=== PATIENT | male | born 1950 | race Caucasian/White ===

== ENCOUNTER 2024-08-23 06:22 | Day surgery (SDC) | payer OTHER, SELFPAY | END 2024-08-23 09:46 | disposition home or self-care (01) | LOC: GI 06:22 | PROVIDERS: ATTENDING PHYSICIAN Internal Medicine Gastroenterology | DX: R13.10 Dysphagia, unspecified (principal); Q39.9 Congenital malformation of esophagus, unspecified; K29.70 Gastritis, unspecified, without bleeding; K31.7 Polyp of stomach and duodenum | CPT/HCPCS: 43239; 88305; 88342 ==

== ENCOUNTER → 2024-08-25 12:11 | Outpatient (REF) | payer OTHER, SELFPAY | LOC: RCS 12:11 | PROVIDERS: ATTENDING PHYSICIAN Internal Medicine Cardiovascular Disease; FAMILY PHYSICIAN Internal Medicine | DX: I48.0 Paroxysmal atrial fibrillation (principal); R06.09 Other forms of dyspnea | CPT/HCPCS: 93306 ==

== ENCOUNTER → 2024-08-29 08:01 | Outpatient (REF) | payer OTHER, SELFPAY | LOC: PET 08:01 | PROVIDERS: ATTENDING PHYSICIAN Internal Medicine Cardiovascular Disease | DX: I48.0 Paroxysmal atrial fibrillation (principal); R06.09 Other forms of dyspnea | CPT/HCPCS: 78431; A9555; J2785 ==

== ENCOUNTER → 2024-08-31 08:51 | Outpatient (REF) | payer OTHER, SELFPAY | LOC: RAD 08:51 | PROVIDERS: ATTENDING PHYSICIAN Internal Medicine Gastroenterology; FAMILY PHYSICIAN Hospitalist | DX: R10.11 Right upper quadrant pain (principal) | CPT/HCPCS: 76700 ==

== ENCOUNTER → 2024-10-17 13:00 | Outpatient (REF) | payer OTHER, SELFPAY | LOC: RAD 13:00 | PROVIDERS: ATTENDING PHYSICIAN Student in an Organized Health Care Education/Training Program; FAMILY PHYSICIAN Internal Medicine | DX: I48.0 Paroxysmal atrial fibrillation (principal) | CPT/HCPCS: 75572; Q9967 ==

== ENCOUNTER 2024-12-05 05:58 | Inpatient (IN) | payer OTHER, SELFPAY ==
[2024-11-14 13:03] VITALS: BMI 31.4
[2024-11-14 13:13] LABS: Hematocrit 37.0 % (39.0-52.0); Hemoglobin 12.7 g/dL (13.0-18.0); Mean Corp Hgb Conc. 34.3 g/dL (33.0-37.0); Mean Corpuscular Volume 91.8 fL (80.0-94.0); Nucleated Red Blood Cells % 0 % (-); Platelet Count 220 10^3/uL (130-400); Red Cell Dist. Width 13.2 % (11.5-14.5)
[2024-11-14 13:27] LABS: INR 1.28; PT 16.3 Sec (11.4-14.6)
[2024-11-14 14:04] LABS: ALT (SGPT) 19 U/L (0-50); AST (SGOT) 24 U/L (17-59); Albumin 4.2 g/dl (3.5-5.0); Alkaline Phosphatase 38 U/L (38-126); Blood Urea Nitrogen 23 mg/dl (9-20); Calcium 9.6 mg/dl (8.4-10.2); Carbon Dioxide 23 mmol/L (22-30); Chloride 113 mmol/L (98-107); Estimated Creatinine Clearance 65 ml/min; Glucose 107 mg/dl (70-99); Potassium 4.1 mmol/L (3.5-5.1); Sodium 141 mmol/L (135-145); Total Protein 6.5 g/dl (6.3-8.2); eGFR > 60.00
[2024-12-05] VITALS (17 sets, daily range): BP systolic 89–116; BP diastolic 46–66
--- NOTE | 2024-12-05 09:06 | ITS.CL.PN ---
Tong Hooker - Procedure Note
Procedure
Procedure Note:
WATCHMAN LEFT ATRIAL APPENDAGE OCCLUSION REPORT
Date of Procedure: 12/05/2024
Referring: Dr. Chapis Ruiz MD
Indication: atrial fibrillation with high bleeding risk and high stroke risk
Operators: Ankit Espinal MD, PhD (interventional cardiology); Dr. Demond Gunn MD (electrophysiology); Dr. Miguel Barr MD (cardiac imaging)
Anesthesia: general anesthesia provided by the anesthesia staff
PROCEDURE: left atrial appendage occlusion with a 27 mm Watchman FLX
ACCESS: 14F right common femoral vein (closure: figure of eight stitch) - Ultrasound was utilized for vascular access. The vessel was visualized under ultrasound and noted to be patent. An image of the vessel was stored permanently in the patient's
medical record. Under direct ultrasound guidance, vascular access was obtained using a modified Seldinger technique and a 8 [place] sheath was placed.
HEMODYNAMIC DATA
LA 11 mmHg
PROCEDURE NARRATIVE:
The patient was intubated and sedated by anesthesiology and then prepped and draped in standard sterile fashion. A CAMILA probe was placed by cardiology and imaging performed demonstrating no left atrial appendage thrombus and no pericardial effusion.
Under ultrasound guidance, the right femoral vein was accessed by Dr. Gunn with an 8F sheath placed. Heparin was administered to achieve ACT>300.
An ICE catheter was placed via the 9F sheath and advanced to the right atrium. The 8F sheath was exchanged over a Intex[employer] RF wire for the Watchman double curve sheath which was advanced to the SVC. The Watchman sheath was then pulled back under
fluoroscopic and echo guidance until an appropriate inferior and posterior position on the septum was achieved. During brief RF application, the wire was advanced through the interatrial septum into the left atrium. The wire was placed in the left
upper pulmonary vein as confirmed by fluoroscopy and CAMILA. The dilator and sheath easily tracked across the septum allowing placement of the sheath in the left atrium. Left atrial pressure was measured at 11 mmHg.
A 5F pigtail catheter was advanced through the sheath and placed in the left atrial appendage, and an appendage gram was performed demonstrating anatomy suitable for a 24 mm Watchman FLX device. The device was prepped on the back table, the pigtail
catheter removed, and the device delivered via the sheath to the left atrial appendage by Dr. Kwame Espinal. The device was deployed slowly under continuous fluoroscopic and CAMILA visualization. After deployment, CAMILA imaging was performed to assess
PASS criteria. The device demonstrated excellent positioning, anchor stability on tug test, but was under sized with compression only 0-10%. The device was recaptured and removed, and a 27 mm device instead deployed in the above manner this time
with excellent positioning, anchor stability on tug test, and appropriate sizing with 10-15% compression, and appropriate seal with no leak at 0, 45, 90, or 135 degrees. Given PASS criteria were met, the device was then released.
The delivery system retracted back into the sheath and removed from the body. The sheath was retracted into the right atrium with CAMILA demonstrating no significant R-L shunt or pericardial effusion. The ICE catheter was
CONCLUSIONS
1. transseptal puncture with CAMILA guidance
2. successful deployment of a 27 mm Watchman FLX device under fluoroscopic and CAMILA guidance
RECOMMENDATIONS:
1. anticoagulation with dabigatran 150 mg BID for 3 months
2. repeat CAMILA in 3 months
Copy to: Dr. Chapis Ruiz MD (computer systems security administrator); Dr. Laina Shipman MD (PCP)
Signed: Ankit Espinal MD, PhD
[2024-12-05 09:08] LABS: ACT-LR - POC 347 Seconds (116-155)
--- NOTE | 2024-12-05 09:37 | WATCHMAN.MD ---
Watchman Implant
-
Watchman ROCIO occlusion device implantation:
Mr. Murillo is a 74 yrs old woman with recurrent falls, subdural hematoma, s/p colon resection and advised to stop anticoagulation therapy is here for Watchman implantation.
Date of Procedure:
12/05/24
Indications:
Recurrent falls with anticoagulation therapy for stroke prevention
Pre-Operative Diagnosis:
Atrial fibrillation with recurrent falls
Post-Operative Diagnosis:
Atrial fibrillation with recurrent falls
Procedure Performed:
Left atrial appendage occlusion with Watchman implantation (27 mm Watchman FLX Pro left atrial appendage closure device)
Performing Physicians:
CAMILA: Lb Brar MD.
Transseptal digging machine operator: Demond Gunn MD.
Implanter: Ankit Espinal MD
Anesthesia:
See anesthesia records
Detailed Description of the Procedure:
Written informed consent was obtained from the patient after a full explanation of the risks and benefits of the procedure including the risks of sedation and anesthesia.
The patient was brought to the electrophysiology laboratory in stable condition in fasting state. Continuous electrocardiographic and hemodynamic monitoring was initiated.
The initial rhythm was sinus.
The procedure site was meticulously prepared with surgical scrub and allowed to dry with no pooling. Sterile draping was applied to cover the procedure site. The image intensifier was draped with sterile bag and positioned over the patient. After
infusion of local anesthetic, vascular access was obtained under ultrasound guidance and sheaths were placed over guide wire as detailed below.
Sheath and Catheter Placement:
In the right femoral vein, an 8-Czech sheath was placed for Watchman placement procedure.
Sheaths:
��������������� Watchman delivery sheath upgraded from 8Fr sheath.
Catheters:
��������������� Watchman catheter
Trans-septal Puncture:
Heparin was initiated and infused to maintain appropriate ACT.
A VersaCross RF pigtail guidewire was advanced through the 8-Czech sheath in the right femoral vein into the superior vena cava under fluoroscopic, CAMILA guidance. The 8Fr was upgraded the Watchman sheath and was advanced into the superior vena cava
over the guide wire. A transseptal VersaCross RF pigtail via Faradrive connect system was utilized to perform the trans-septal puncture. The apparatus was withdrawn until it was in contact with the fossa ovalis. The position was adjusted based on
fluoroscopy and ultrasound images from CAMILA. Under fluoroscopic, hemodynamic and CAMILA ultrasound guidance, left atrium was cannulated by applying the radiofrequency energy. The right atrial and left atrial pressure was monitored. A guide wire was
placed and was advanced into the left superior pulmonary vein. Both the sheath and the dilator was advanced into the left atrium. The dilator was withdrawn. Blood was aspirated from the sheath and arterial blood confirmed. The sheath was flushed.
Saline injection noted into the left atrium on CAMILA. The LA pressure was recorded. The saline injection was noted in the LA on the CAMILA. A curved pig tail was advanced over the guide wire into the left atrium and the wire was removed.
Left atrial appendage atriography:
The pigtail was advanced into the ROCIO and was confirmed on fluoroscopy and CAMILA. The contrast was injected and the ROCIO shape was recorded in STEWART /Caudal view (10/10 degrees). The size of the ROCIO was again checked and confirmed reviewing the CAMILA and
the fluoroscopy along with previously obtained CT scan images.
Watchman Deployment:
The Watchman delivery sheath was advanced into the ROCIO over the pigtail till the right marker was at the location of the orifice line marked on the screen. The pigtail was removed and the Watchman delivery system was advanced through the sheath into
the ROCIO till it was aligned with the outer sheath marker inside the ROCIO. The watchman sheath was clicked with the outer sheath. Once acceptable location achieved, the outer sheath was pulled back keeping the device steady at the ROCIO location till a
ball of the device was formed under fluoroscopic guidance. The whole system was advanced further into the ROCIO till adequate depth is achieved into the ROCIO.� The ROCIO occluder was deployed and expanded adequately anchoring to the ROCIO. The device was
kept anchored with stable pressure to that location for 10 seconds.
The compression on the device was inadequate and decision was made to switch 24 mm device to 27 mm device.
The new device was prepped and introduced and deployed as noted above.
The CAMILA image confirmed adequate expansion. The tug test was done that showed the device is anchored well and is not able to come out. The compression was 15% and 18% on the three sides. There was no significant leak noted on the Doppler via CAMILA.
The device was deployed by unscrewing the Watchman device and releasing from the connecting wire. The wire was pulled back into the sheath and the sheath was pulled out of the LA.
Implanted device:
WATCHMAN FLX Pro � 27mm
Procedure End
CAMILA study was done again that showed no epicardial accumulation that was unchanged from earlier. A repeated images showed no change in the pericardial space. No complications noted.
Following the completion of the deployment, catheters were removed. Protamine 30 mg was given at the end of the procedure and ACT was checked repeatedly. The sheath was removed and hemostasis achieved with Fig of 8 suture and manual compression
after acceptable ACT is achieved.
Left atrial Pressure:
Mean LA pressure was 11mmHg
Estimated Blood loss:
10 cc
Specimens Removed:
None.
Implants / Devices:
None
Urine output:
None
Packs / Drains/ Tubes:
None
Instrument / Sponge Count Correct:
Yes
Complications of the Procedure:
None
Condition of Patient at Time of Transfer:
Hemodynamically stable with no neurological or vascular compromise.
Summary:
Successful implantation of the left atrial occlusion device (WATCHMAN FLX Pro� 27mm)
Post procedure Plan for anticoagulation:
Continue Dabigatran 150 mg BID for 3 months.
CAMILA in three months
--- NOTE | 2024-12-05 16:37 | W.DS.TRANS ---
DC Summary - Communications Consultant
-
Discharge Instructions:
Discharge Diagnosis/Procedures AFib, s/p watchman device implant
Diet Low Cholesterol
Driving Restrictions No driving for 24 hours
Others Tests Follow Up CAMILA has been scheduled for you at [facility] on 03/07/[address] Acosta. You will receive instructions in the
mail and a call the day prior with arrival time.
Instructions:
Stand-Alone Forms: DC Instructions- Cath/EP Lab
Changes to Home Medications: No
Discharge Medications:
DC Medications w/original date entered in [employer]([facility])
fenofibrate nanocrystallized 145 mg tablet 145 mg PO DAILY 08/16/11
doxazosin 4 mg tablet 4 mg PO DAILY 12/26/14
allopurinol 100 mg tablet 100 mg PO DAILY 11/27/16
pantoprazole 40 mg tablet,delayed release 40 mg PO DAILY 11/27/16
dabigatran etexilate 150 mg capsule (Pradaxa) 150 mg PO BID ##60 12/12/16
escitalopram oxalate 10 mg tablet (Lexapro) 10 mg PO DAILY 11/09/24
levetiracetam 500 mg tablet (Keppra) 2,000 mg PO QPM 11/09/24
losartan 100 mg tablet 100 mg PO DAILY 11/09/24
metoprolol succinate 100 mg tablet,extended release 24 hr 100 mg PO DAILY 11/09/24
rosuvastatin 20 mg tablet (Crestor) 20 mg PO QPM 11/09/24
zonisamide 100 mg capsule 300 mg PO QPM 11/09/24
Home Medication Changes
Pending Results: No
== END 2024-12-05 15:45 | disposition home or self-care (01) | DRG 274 ==
LOC: CATH-IN 05:58
PROVIDERS: ADMITTING PHYSICIAN Student in an Organized Health Care Education/Training Program; FAMILY PHYSICIAN Hospitalist
PROC: 02L73DK Occlusion of Left Atrial Appendage with Intraluminal Device, Percutaneous Approach (ICD-10-PCS; 2024-12-05)
DX: I48.0 Paroxysmal atrial fibrillation (principal); Z00.6 Encounter for examination for normal comparison and control in clinical research program; Z86.73 Personal history of transient ischemic attack (TIA), and cerebral infarction without residual deficits; E78.5 Hyperlipidemia, unspecified; I25.10 Atherosclerotic heart disease of native coronary artery without angina pectoris; G47.33 Obstructive sleep apnea (adult) (pediatric); K21.9 Gastro-esophageal reflux disease without esophagitis; G40.909 Epilepsy, unspecified, not intractable, without status epilepticus; D64.9 Anemia, unspecified; F32.A Depression, unspecified; F41.9 Anxiety disorder, unspecified; I10 Essential (primary) hypertension; Z79.01 Long term (current) use of anticoagulants; G25.0 Essential tremor; Z87.891 Personal history of nicotine dependence; E66.9 Obesity, unspecified; Z68.31 Body mass index [BMI] 31.0-31.9, adult; J43.9 Emphysema, unspecified; K76.0 Fatty (change of) liver, not elsewhere classified
CPT/HCPCS: 33340; 36415; 80053; 85025; 85347; 85610; 86850; 86900; 86901; 93005; 93355; C1894; Q9967